=== PATIENT | female | born 1975 | race Caucasian/White ===

== ENCOUNTER 2016-10-30 10:22 | Day surgery (SDC) | payer OTHER ==
[2016-10-30] VITALS (13 sets, daily range): BP systolic 101–138; BP diastolic 60–79; PULSE 84–97; RESP 15–17; Ht 149.9 cm; Wt 67.0 kg
[~2016-10-30] VITALS: Ht 149.9 cm; Wt 67.0 kg
--- NOTE | 2016-10-30 06:36 | PREOPHP ---
DATE OF ADMISSION: 10/30/2016 HISTORY OF PRESENT ILLNESS: This is a 41-year-old lady, 2, para 2. Her last normal menstru al period was a few days prior to admission. She was admitted for marsupialization of right Barthol in cyst measuring about 6 x 6 cm. This patient had recurrent Bartholin cyst, so she wanted to have this procedure done. The procedures were explained to the patient, and she understood everything to tally. The risks, benefits, and alternatives were discussed with her as well. PAST PERSONAL HISTORY: No history of TB, asthma, or allergies. The patient has history of diabetes and presentation is on metformin. FAMILY HISTORY: Mother has diabetes. PAST SURGICAL HISTORY: She had a cyst removed in 2006. She is 2, para 2 with 2 normal deli veries. REVIEW OF SYSTEMS: CARDIOVASCULAR: No chest pains. RESPIRATORY: No cough. GASTROINTESTINAL: No diarrhea, no vomiting. GENITOURINARY: No dysuria. PHYSICAL EXAMINATION: GENERAL: Reveals a conscious coherent lady in no acute distress. VITAL SIGNS: Blood pressure 120/80, pulse rate 80 per minute, respirations 16 per minute. BREASTS, HEART, AND LUNGS: Within normal limits. ABDOMEN: Soft. No organomegaly. PELVIC: Revealed the cervix to be firm, uterus of normal size, and adnexa were negative for masses. A 6 x 6 cm right Bartholin cyst was noted. RECTAL: Confirmed the pelvic findings. EXTREMITIES: No pedal edema. ADMITTING DIAGNOSIS: Symptomatic right Bartholin cyst. PLAN: The patient was planned to have the above procedure. Dictated By: JOSE JUAN OTOOLE/MORRO Conf#: [id number] DID#: [id number]
[~2016-10-30 10:22] MED LIST: CEFAZOLIN 1 GM INJ ONE
[2016-10-30] MEDS ORDERED: METF500T4 PO (11:09)
[2016-10-30] MEDS ORDERED: SIMV10TA PO (11:10)
[2016-10-30] MEDS ORDERED: LISI-313 PO (11:10)
[2016-10-30] MEDS ORDERED: MEPERIDINE 100 MG INJ ONE (13:57)
[2016-10-30] MEDS ORDERED: LIDOCAINE 2% (SDV) 5 ML INJ ONE (13:57)
[2016-10-30] MEDS ORDERED: PROPOFOL 20 ML ONE (13:57)
[2016-10-30] MEDS ORDERED: DIPHENHYDRAMINE 50 MG INJ IV PRN (14:00)
[2016-10-30] MEDS ORDERED: morphine (1 MG/ML) 10ML SYRINGE IV PRN ×2 (14:00)
[2016-10-30] MEDS ORDERED: MIDAZOLAM 1 MG/ML 2 ML INJ IV PRN (14:00)
[2016-10-30] MEDS ORDERED: FENTAnyl 50 MCG/ML VIAL IV PRN ×2 (14:00)
[2016-10-30] MEDS ORDERED: MEPERIDINE 25 MG INJ IV PRN (14:00)
[2016-10-30] MEDS ORDERED: METOCLOPRAMIDE 10 MG INJ IV PRN (14:00)
[2016-10-30] MEDS ORDERED: ONDANSETRON 4 MG INJ IV PRN (14:00)
[2016-10-30] MEDS ORDERED: METOCLOPRAMIDE 10 MG INJ ONE (15:05)
[2016-10-30] MEDS ORDERED: ONDANSETRON 4 MG INJ ONE (15:05)
--- NOTE | 2016-10-30 16:13 | OPR ---
DATE OF OPERATION: 10/30/2016 PREOPERATIVE DIAGNOSIS: Right Bartholin's cyst 5 x 5 cm. POSTOPERATIVE DIAGNOSIS: Right Bartholin cyst 5 cm x 5 cm. OPERATION PERFORMED: Marsupialization of right Bartholin's cyst. SURGEON: Daniela Cabello MD MARKET DEVELOPMENT EXECUTIVE: Melissa varghese. ANESTHESIA: General. OPERATIVE TECHNIQUE: Under general anesthesia, the patient was prepped and draped in the usual [facility] ion for vaginal surgery. Then, pelvic exam under anesthesia revealed the cervix to be firm, uterus of normal size, and adnexa were negative for masses. A 5 x 5 cm right Bartholin's cyst was noted, so that an incision was performed above the cyst capsule and about 1.5 inch incision was performed at the serosa of the vaginal mucosa and a 1.5 incision was performed. The vaginal mucosa was from the Bartholin's cyst capsule by sharp and blunt dissection When one half of the cyst was sepa rated from the vaginal mucosa, then the cyst was opened and about 30 mL of pus came out and GC chlam ydia and culture was obtained. Then half of the cyst capsule was excised and then the remaining cys t capsule was sutured with the vaginal mucosa. About 14 sutures were put in with 2-0 chromic and an SH needle. Then, irrigation was done. After the irrigation, bleeders were checked and there was n o bleeding noted. Then, the red ____ was inserted in the bladder and clear urine was noted. The pa tient tolerated the procedure well. Estimated blood loss was minimal. Vital signs were stable duri ng and after the procedure. Dictated By: DANIELA CABELLO MD NS/NTS Conf#: [id number] DID#: [id number] CC: DANIELA CABELLO MD;*EndCC*
== END 2016-10-30 17:00 | disposition home or self-care (01) ==
LOC: SDS 10:22
PROVIDERS: ATTEND Obstetrics & Gynecology
DX: N75.0 Cyst of Bartholin's gland (principal); E11.9 Type 2 diabetes mellitus without complications; I10 Essential (primary) hypertension; E78.5 Hyperlipidemia, unspecified; E66.9 Obesity, unspecified; Z68.29 Body mass index [BMI] 29.0-29.9, adult
CPT/HCPCS: 56440; 82962; 86900; 86901; 87070; 87075; 88304; J0690; J2175; J2405; J2765; Z7512; Z7610